=== PATIENT | female | born 1945 | race Caucasian/White ===

== ENCOUNTER 2023-03-11 15:28 | Emergency (ER) | payer MEDICARE ==
[~2023-03-11] VITALS: Ht 154.9 cm; Wt 52.3 kg
[2023-03-11 20:08] VITALS: BP 158/81
== END 2023-03-11 20:09 | disposition home or self-care (01) ==
LOC: ER 15:29
DX: R53.83 Other fatigue (principal); R51.9 Headache, unspecified; R19.7 Diarrhea, unspecified
CPT/HCPCS: 70450; 99284